=== PATIENT | female | born 1955 | race Caucasian/White ===

== ENCOUNTER → 2020-06-24 10:36 | Outpatient (CLI) | payer MEDICARE, SELFPAY ==
--- NOTE | ~2020-06-24 | MM_ITS ---
EXAMINATION: MM screening cruz BI w warren HISTORY: Screening mammogram TECHNIQUE: Craniocaudal and mediolateral oblique 3-D tomosynthesis images were obtained and synthetic 2-D images were generated. CAD analysis was submitted and interpreted. COMPARISON: 05/24/2009 BREAST PARENCHYMAL COMPOSITION: There are scattered areas of fibroglandular density. FINDINGS: There is no evidence of suspicious mass, calcification, or architectural distortion to sugg est malignancy in either breast. There has been no suspicious interval change. IMPRESSION: 1. No mammographic evidence of malignancy. 2. Recommend routine screening mammography in one year. BI-RADS Category 1: Negative Reviewed, dictated and finalized at location A. [employer] CONSTRUCTOR
== END ==
PROVIDERS: PCP Family Medicine; Visit Provider Family Medicine
DX: Z12.31 Encounter for screening mammogram for malignant neoplasm of breast (principal)
CPT/HCPCS: 77063; 77067

== ENCOUNTER 2021-05-19 07:43 | Outpatient (CLI) | payer MEDICARE, SELFPAY ==
--- NOTE | 2021-05-28 19:15 | WPDHOMESLEEP ---
Sleep Study - Home Unattended Date of Study: 05/19/21 <Naina Hart DO - Last Filed: 05/28/21 19:32> Ordering Provider: Wilberto Wakefield DO <Naina Hart DO - Last Filed: 05/28/21 19:32> Interpreting Provider: Naina Hart DO <Naina Hart DO - Last Filed: 05/28/21 19:32> Home Sleep Study Type: Watch PAT <Naina Hart DO - Last Filed: 05/28/21 19:32> Height: 1.6 m <Naina Hart DO - Last Filed: 05/28/21 19:32> Weight: 76.204 kg <Naina Hart DO - Last Filed: 05/28/21 19:32> Body Mass Index: 29.7 <Naina Hart DO - Last Filed: 05/28/21 19:32> Neck Circumference (inches): 14.50 <Naina Hart DO - Last Filed: 05/28/21 19:32> [place]: 3 <Naina Hart DO - Last Filed: 05/28/21 19:32> Reason for Sleep Study Palpitations, snoring, daytime sleepiness <Naina Hart DO - Last Filed: 05/28/21 19:32> Sleep History The patient is a 65 year old female with type 2 diabetes, GERD and hyperlipidemia night had a home sleep test ordered by her concierge due to palpitations, snoring and daytime sleepiness. The patient is currently retired. She denies awakening from sleep short of breath. She often awakens at night with heartburn, belching or cough. She occasionally snores but never loud enough that others complain. She occasionally has trouble sleeping when she has a cold. She denies waking up gasping for air throughout the night. She denies having breathing problems at night observed by others. She frequently sweats excessively at night. She rarely falls asleep during the day and never while driving. She denies sleep paralysis and cataplexy. She rarely experiences vivid dreamlike scenes upon awakening or falling. She rarely has nightmares. She frequently feels sad, depressed and anxious. She frequently notices parts of her body jerk. She denies kicking throughout the night. She denies experiencing crawling and aching feelings in her legs. She occasionally has leg pain during night. She denies grinding her teeth during sleep and awakening with jaw pain. She occasionally is bothered by pain during the day and awakened by pain throughout the night. She frequently wakes up feeling stiff in the morning with sore and achy muscles. She goes to bed between 10:00 p.m. and 11:00 p.m. on both weekdays and weekends. She falls asleep within 30 minutes to an hour. She wakes up 3 times per night to urinate. She can not fall back asleep within 5-10 minutes. She wakes up between 730 and 8:00 a.m. on weekdays and weekends. She typically gets 6-7 hours of sleep per night he will stay in bed for 10-20 minutes after waking up in morning. She currently lives with her . She does not consume any caffeinated beverages within 2 hours of going to bed. He does not engage in physical exercise before bedtime. She will watch television before falling asleep. She does not nap in the afternoon the evening. She is a former smoker. She will consume 3 caffeinated beverages per day. She denies alcohol and recreational drug use. <Naina Hart DO - Last Filed: 05/28/21 19:32> [facility] Past Medical History Medical History: Medical History Diabetes Dyslipidemia GERD without esophagitis History of vaginal delivery x 2 Normal colonoscopy Type 2 diabetes mellitus without complication, without long-term current use of insulin <Naina Hart DO - Last Filed: 05/28/21 19:32> Family History Family History: Family History Mother Hypertension Other Diabetes mellitus Family history of thyroid disease <Naina Hart DO - Last Filed: 05/28/21 19:32> Social History Social History: Social History Second
[2021-05-28 19:18] VITALS: BMI 29.7
== END 2021-05-20 09:26 | disposition home or self-care (01) ==
LOC: ANHCSM 07:48
PROVIDERS: PCP Family Medicine; Visit Provider Internal Medicine Cardiovascular Disease
DX: G47.10 Hypersomnia, unspecified (principal); G47.33 Obstructive sleep apnea (adult) (pediatric)
CPT/HCPCS: 95800

== ENCOUNTER → 2021-05-22 09:42 | Outpatient (CLI) | payer MEDICARE, SELFPAY ==
--- NOTE | ~2021-05-22 | CT_ITS ---
EXAMINATION:CT lung screening DATE: 05/22/2021 09:54 INDICATION: Tobacco use. Smoker who quit 3 years ago with 69 pack year history. TECHNIQUE: Computed tomography (CT) of the chest was performed without intravenous contrast. Automate d exposure control and iterative reconstruction technique were employed. The dose-length product (DLP ) was 106.05 mGy-cm. COMPARISON: None. FINDINGS: A calcified left lung nodule and calcified left hilar lymph nodes are consistent with old g ranulomatous disease. No pleural effusion. The heart size is normal. There are coronary artery calcif ications. No pericardial effusion. There is a small sliding hiatal hernia. There is a 16 mm mass jhon uring low attenuation in right adrenal gland, consistent with an adenoma. There is severe thoracic sp ondylosis. IMPRESSION: 1. Lung-RADS category 1: Negative. Continue annual screening with noncontrast low-dose chest CT in 12 months. Reviewed, dictated and finalized at location A. IMPRESSION: 1. Lung-RADS category 1: Negative. Continue annual screening with noncontrast l ow-dose chest CT in 12 months.
== END ==
PROVIDERS: PCP Family Medicine; Visit Provider Family Medicine
DX: Z12.2 Encounter for screening for malignant neoplasm of respiratory organs (principal); Z87.891 Personal history of nicotine dependence
CPT/HCPCS: 71271

== ENCOUNTER 2021-06-16 07:24 | Outpatient (CLI) | payer MEDICARE, SELFPAY ==
--- NOTE | 2021-06-16 07:37 | ECHO_ITS ---
Patient Info Name: Mary Jean Age: 65 years : 1955 Gender: Female Ht: 63 in Wt: 168 lbs BSA: 1.87 m2 HR: 64 bpm BP: 126 / 73 mmHg Technical Quality: Good Exam Date: 06/16/2021 7:56 AM Exam Location: [facility] Patient Status: Outpatient Admit Date: 06/16/2021 Staff Ordering Physician: Wilberto Wakefield DO Security Police: Alayna Montes De Oca RDCS Attending Provider: Wilberto Wakefiled DO Referring Physician: Ashu SANTIAGO; Exam Type: CA echo doppler color flow Study Info Indications R06.00 - Dyspnea, unspecified Complete two-dimensional, color flow and Doppler transthoracic echocardiogram is performed. Summary 1. Complete two-dimensional, color flow and Doppler transthoracic echocardiogram is performed. 2. Left ventricular chamber dimension is normal. 3. Left ventricular systolic function is normal, estimated at 55-60%. 4. There is mildly increased left ventricular wall thickness. 5. The left ventricular diastolic function is abnormal. 6. E/e' 10 is mildly elevated. 7. The mitral valve has mildly calcified annulus. 8. There is mild tricuspid valve regurgitation. 9. No pulmonary hypertension, estimated pulmonary arterial systolic pressure is 28 mmHg. Left Ventricle E/e' 10 is mildly elevated. Left ventricular chamber dimension is normal. Left ventricular systolic function is normal, estimated at 55-60%. There is mildly increased left ventricular wall thickness. The left ventricular diastolic function is abnormal. Right Ventricle Right ventricular chamber dimension is normal. Right ventricular systolic function is normal. Left Atria Left atrial chamber dimension is normal. Right Atria Right atrial chamber dimension is normal. Aortic Valve The aortic valve is trileaflet. There is no aortic valve stenosis. There is no aortic valve regurgitation. Pulmonic Valve There is no pulmonic regurgitation. Mitral Valve The mitral valve has mildly calcified annulus. There is no mitral valve stenosis. There is no mitral valve regurgitation. Tricuspid Valve There is mild tricuspid valve regurgitation. No pulmonary hypertension, estimated pulmonary arterial systolic pressure is 28 mmHg. Pericardium/Pleural There is no pericardial effusion. Inferior Vena Cava Normal inferior vena cava with >50% collapse upon inspiration consistent with normal right atrial pressure, 5 mmHg. Aorta The aortic root size at the sinus of Valsalva is normal. Left Ventricular Outflow Tract Name Value Normal LVOT 2D LVOT Diameter 2.0 cm LVOT Doppler LVOT Peak Gradient 4 mmHg LVOT Mean Gradient 3 mmHg LVOT VTI 28 cm LVOT VTI/AV VTI Ratio 0.9 LVOT Stroke Volume 83 ml LVOT CO 5.8 l/min LVOT CI 3.1 l/min/m2 Pulmonic Valve Name Value Normal
== END 2021-06-16 07:25 | disposition home or self-care (01) ==
LOC: ANHCARD 07:25
PROVIDERS: PCP Family Medicine; Visit Provider Internal Medicine Cardiovascular Disease
DX: R06.00 Dyspnea, unspecified (principal); I36.1 Nonrheumatic tricuspid (valve) insufficiency
CPT/HCPCS: 93306

== ENCOUNTER 2021-06-17 09:44 | Outpatient (CLI) | payer MEDICARE, SELFPAY ==
--- NOTE | 2021-07-08 12:36 | WPDSLEEPSTUD ---
Sleep Study Date of Study: 06/17/21 <Naina Hrat, DO - Last Filed: 07/08/21 13:39> Ordering Provider: Wilberto Wakefield DO <Naina Hart, DO - Last Filed: 07/08/21 13:39> Interpreting Physician: Naina Hart DO <Naina Hart, DO - Last Filed: 07/08/21 13:39> Sleep Study Type: CPAP Titration <Naina Hart DO - Last Filed: 07/08/21 13:39> Height: 1.61 m <Naina Hart DO - Last Filed: 07/08/21 13:39> Weight: 76.204 kg <Naina Hart DO - Last Filed: 07/08/21 13:39> Body Mass Index: 29.2 <Naina Hart DO - Last Filed: 07/08/21 13:39> Neck Circumference (inches): 14 <Naina Hart DO - Last Filed: 07/08/21 13:39> [place]: 2 <Naina Hart DO - Last Filed: 07/08/21 13:39> Reason for Sleep Study The patient had a home sleep test on 05/19/2021 that showed an AHI of 16.6 which is consistent with moderate sleep apnea. She had a NBA of 7.3 which is elevated. She had an echocardiogram on 06/16/2021 that showed an EF between 55-60%. Patient was then scheduled for a PAP Titration. <Naina Hart, DO - Last Filed: 07/08/21 13:39> Sleep History The patient is a 65 year old female with type 2 diabetes, GERD and hyperlipidemia night had a home sleep test ordered by her entertainment usher due to palpitations, snoring and daytime sleepiness. The patient is currently retired. She denies awakening from sleep short of breath. She often awakens at night with heartburn, belching or cough. She occasionally snores but never loud enough that others complain. She occasionally has trouble sleeping when she has a cold. She denies waking up gasping for air throughout the night. She denies having breathing problems at night observed by others. She frequently sweats excessively at night. She rarely falls asleep during the day and never while driving. She denies sleep paralysis and cataplexy. She rarely experiences vivid dreamlike scenes upon awakening or falling. She rarely has nightmares. She frequently feels sad, depressed and anxious. She frequently notices parts of her body jerk. She denies kicking throughout the night. She denies experiencing crawling and aching feelings in her legs. She occasionally has leg pain during night. She denies grinding her teeth during sleep and awakening with jaw pain. She occasionally is bothered by pain during the day and awakened by pain throughout the night. She frequently wakes up feeling stiff in the morning with sore and achy muscles. She goes to bed between 10:00 p.m. and 11:00 p.m. on both weekdays and weekends. She falls asleep within 30 minutes to an hour. She wakes up 3 times per night to urinate. She can not fall back asleep within 5-10 minutes. She wakes up between 730 and 8:00 a.m. on weekdays and weekends. She typically gets 6-7 hours of sleep per night he will stay in bed for 10-20 minutes after waking up in morning. She currently lives with her . She does not consume any caffeinated beverages within 2 hours of going to bed. He does not engage in physical exercise before bedtime. She will watch television before falling asleep. She does not nap in the afternoon the evening. She is a former smoker. She will consume 3 caffeinated beverages per day. She denies alcohol and recreational drug use. <Naina Hart DO - Last Filed: 07/08/21 13:39> [facility] Past Medical History Medical History: Medical History Diabetes Dyslipidemia GERD without esophagitis History of vaginal delivery x 2 Normal colonoscopy Type 2 diabetes mellitus without complication, without long-term current use of insulin <Naina Hart DO - Last Filed: 07/08/21 13:39> Family History Family History: Family History Mother Hypertension Other Diabetes ángel
[2021-07-08 12:38] VITALS: BMI 29.2
== END 2021-06-18 07:58 | disposition home or self-care (01) ==
LOC: ANHCSM 09:44
PROVIDERS: PCP Family Medicine; Visit Provider Internal Medicine Cardiovascular Disease
DX: G47.33 Obstructive sleep apnea (adult) (pediatric) (principal)
CPT/HCPCS: 95811

== ENCOUNTER → 2021-11-23 12:13 | Outpatient (CLI) | payer MEDICARE, SELFPAY ==
--- NOTE | ~2021-11-23 | DEXA_ITS ---
Bone Density Report Name: SHELBI QUIROGA Age: 66 Sex: Female Ethnicity: White Date of : 1955 Indication: postmenopausal; screening for osteoporosis; height loss; Referring Provider: Christine Del Rio Study: Bone densitometry was performed. Exam Date: November 23, 2021 Accession number: [id number] Bone Density: Region BMD T-score Z-score Classification AP Spine (L1-L4) 1.105 0.5 2.5 Normal Femoral Neck (Left) 0.885 0.3 2.0 Normal Total Hip (Left) 1.032 0.7 2.1 Normal Femoral Neck (Right) 0.823 -0.2 1.5 Normal Total Hip (Right) 1.066 1.0 2.4 Normal Total Hip Mean 1.049 0.9 2.3 Normal World Health Organization criteria for BMD impression classify patients as: Normal (T-score at or above -1.0), Osteopenia (T-score between -1.0 and -2.5), or Osteoporosis (T-score at or below -2.5). 10-year Fracture Risk: FRAX not reported because: All T-scores for Spine Total, Hip Total, Femoral Neck at or above -1.0 Previous Exams: Region Exam Age BMD T-score BMD Change BMD Change Date g/cm2 vs Baseline vs Previous AP Spine(L1-L4) 11/23/2021 66 1.105 0.5 0.051* 0.045* 05/24/2012 56 1.059 0.1 0.006 0.006 05/24/2009 53 1.053 0.1 Total Hip(Left) 11/23/2021 66 1.032 0.7 0.005 -0.030* 05/24/2012 56 1.062 1.0 0.035* 0.035* 05/24/2009 53 1.027 0.7 Total Hip(Right) 11/23/2021 66 1.066 1.0 -0.005 -0.007 05/24/2012 56 1.073 1.1 0.001 0.001 05/24/2009 53 1.072 1.1 *Denotes significance at 95% confidence level, LSC for AP Spine = 0.022 g/cm2, LSC for Total Hip = 0.027 g/cm2 Clinical Information Provided by Patient: Patient maximum height was 64.5 Menopause Age: 40 No regular weight bearing exercise Does not regularly consume dairy products Drinks caffeinated beverages Onset of menses at age 12 Number of children 2 Impression: The patient has normal bone mass. The BMD for the Total Hip(Left) decreased, changing by -0.030 since the last DXA exam. Discussion: BONE DENSITY IS ABOVE THE MINIMUM DESIRABLE LEVEL AT ALL SKELETAL SITES TESTED. This patient?s bone mineral density is above the minimum desirable level (T-score -1.0 or better) at all sites measured. The patient should follow a healthful lifestyle (good nutrition with adequate calcium and vitamin D, and appropriate weight-bearing exercise).
--- NOTE | ~2021-11-23 | MM_ITS ---
EXAMINATION: MM screening cruz BI w warren HISTORY: Screening mammogram TECHNIQUE: Craniocaudal and mediolateral oblique 3-D tomosynthesis images were obtained and synthetic 2-D images were generated. CAD analysis was submitted and interpreted. COMPARISON: 06/24/2020 bilateral screening mammogram BREAST PARENCHYMAL COMPOSITION: There are scattered areas of fibroglandular density. FINDINGS: There is a biopsy marker on the right; history of prior benign right breast biopsy. Small stable benign appearing right axillary tail lymph nodes. Several up to approximately 4 mm nodular densities are noted in the lower mid right breast. Diagnosti c right mammogram and right breast ultrasound examination are recommended. Otherwise there is no evidence of suspicious mass, calcification, or architectural distortion to sugg est malignancy in either breast. There has been no other suspicious interval change. IMPRESSION: 1. Several lower mid right breast masses 2. Diagnostic right mammogram and right breast ultrasound examination are recommended. BI-RADS Category 0: Incomplete: Needs additional imaging evaluation. Reviewed, dictated and finalized at location A. IMPRESSION: 1. Several lower mid right breast masses 2. Diagnostic right mammogram and right breast ultrasound examination are recom mended. BI-RADS Category 0: Incomplete: Needs additional imaging evaluation.
== END ==
PROVIDERS: PCP Family Medicine; Visit Provider Family Medicine
DX: Z12.31 Encounter for screening mammogram for malignant neoplasm of breast (principal); Z78.0 Asymptomatic menopausal state; R92.8 Other abnormal and inconclusive findings on diagnostic imaging of breast
CPT/HCPCS: 77063; 77067; 77080

== ENCOUNTER → 2021-11-26 12:40 | Outpatient (CLI) | payer MEDICARE, SELFPAY ==
--- NOTE | ~2021-11-26 | CT_ITS ---
EXAMINATION: CT abdomen w con INDICATION: Benign neoplasm of the right adrenal gland TECHNIQUE: Computed tomographic images of the abdomen were obtained after the administration of 100 c c of Omnipaque 350 intravenous contrast. The dose-length product (DLP) was 441.58 mGy-cm. Automated e xposure control and iterative reconstruction technique were employed. COMPARISON: 05/22/2021 FINDINGS: Minimal dependent atelectasis is present in the lung bases. The heart size is normal. The l iver, spleen, pancreas, and gallbladder are normal. There is a stable 1.6 cm mass of the right adrena l gland. Calcified atherosclerosis is noted. There are no pathologically enlarged abdominal lymph nod es. The appendix is normal. There is no free intraperitoneal gas or evidence of bowel obstruction. IMPRESSION: 1. Stable right adrenal mass, consistent with an adenoma given the low density appearance on the [facility] CT. Reviewed, dictated and finalized at location F. IMPRESSION: 1. Stable right adrenal mass, consistent with an adenoma given the low density appearance on the comparison CT.
[2021-11-26 13:00] LABS: Estimated Glomerular Filt Rate > 60
== END ==
PROVIDERS: PCP Family Medicine; Visit Provider Family Medicine
DX: D35.01 Benign neoplasm of right adrenal gland (principal)
CPT/HCPCS: 74160; Q9967

== ENCOUNTER → 2021-12-01 14:06 | Outpatient (CLI) | payer MEDICARE, SELFPAY ==
--- NOTE | ~2021-12-01 | MMUS_ITS ---
EXAMINATION: MM diagnostic cruz RT w warren, US breast RT limited HISTORY: Follow-up small right breast masses TECHNIQUE: Additional 3-D tomosynthesis images of the right breast were performed and synthetic 2-D i mages were generated. CAD analysis was submitted and interpreted. High resolution Limited right breas t ultrasound was performed. COMPARISON: 11/23/2021 BREAST PARENCHYMAL COMPOSITION: Breast composed of scattered areas of fibroglandular density FINDINGS: MAMMOGRAPHIC FINDINGS: There are 2 small masses in the lower central aspect of the right breast, largest measuring 4 mm. No suspicious calcifications or architectural distortion. ULTRASOUND: Limited right breast ultrasound: At 6:00 near the [place] there is a 4 mm cyst corresponding to one of the masses. No other sonographic abnormalities are seen. IMPRESSION: 1. Probable benign right breast masses by mammogram with at least one being characterized as a simple cyst by ultrasound. 2. Recommend 6 month follow-up diagnostic right mammogram and ultrasound BI-RADS category 3, probably benign findings. Reviewed, dictated and finalized at location A. IMPRESSION: 1. Probable benign right breast masses by mammogram with at least one being antwan racterized as a simple cyst by ultrasound. 2. Recommend 6 month follow-up diagnostic right mammogram and ultrasound BI-RADS category 3, probably benign findings.
== END ==
PROVIDERS: PCP Family Medicine; Visit Provider Family Medicine
DX: R92.8 Other abnormal and inconclusive findings on diagnostic imaging of breast (principal)
CPT/HCPCS: 76642; 77061; 77065; G0279

== ENCOUNTER 2022-11-11 10:37 | Outpatient (CLI) | payer MEDICARE, SELFPAY ==
[2022-11-11 18:56] LABS: Alanine Aminotransferase 43 U/L (6-35); Albumin Level 4.3 g/dL (3.5-5.1); Alkaline Phosphatase 79 U/L (38-126); Anion Gap 6 mmol/L (8-16); Aspartate Amino Transferase 48 U/L (14-36); Bilirubin,Total 0.7 mg/dL (0.2-1.3); Blood Urea Nitrogen 13 mg/dL (7-17); Calcium 9.1 mg/dL (8.4-10.2); Carbon Dioxide 32 mmol/L (22-30); Chloride 102 mmol/L (98-107); Estimated Glomerular Filt Rate > 60; Glucose 136 mg/dL (65-110); Potassium 4.6 mmol/L (3.4-5.0); Sodium 140 mmol/L (137-145)
[2022-11-11 20:54] LABS: Hemoglobin A1C 7.1 % (<5.7)
== END 2022-11-11 10:38 | disposition home or self-care (01) ==
LOC: ANHGOSHLAB 10:38
PROVIDERS: PCP Family Medicine; Visit Provider Family Medicine
DX: E78.5 Hyperlipidemia, unspecified (principal); Z79.899 Other long term (current) drug therapy; E11.9 Type 2 diabetes mellitus without complications
CPT/HCPCS: 36415; 80053; 83036

== ENCOUNTER → 2023-05-13 10:14 | Outpatient (CLI) | payer MEDICARE, SELFPAY ==
--- NOTE | ~2023-05-13 | CT_ITS ---
CT Scan of the Chest without Contrast: Clinical Indication: Lung cancer screening, personal history of nicotine dependence Technique: Contiguous sections were acquired throughout the chest without intravenous contrast. Dose reduction technique was used on this scan by utilizing automated exposure control and iterative recon struction technique. The dose-length product (DLP) was 126.24 mGy-cm. COMPARISON: 05/22/2021 Findings: There is no evidence of any significant mediastinal, hilar or axillary lymphadenopathy. There are ext ensive atherosclerotic calcifications of the aorta and coronary arteries. There is no evidence of pleural or pericardial effusion. The lungs are clear. No pulmonary nodules or infiltrates are noted. Images through the upper abdomen reveal stable right adrenal nodule, consistent with adenoma. Impression: Lung RADS 1: Negative. 12 month follow-up screening CT advised. Reviewed, dictated and finalized at [facility]. Impression: Lung RADS 1: Negative. 12 month follow-up screening CT advised.
== END ==
PROVIDERS: PCP Family Medicine; Visit Provider Nurse Practitioner Family
DX: Z12.2 Encounter for screening for malignant neoplasm of respiratory organs (principal); Z87.891 Personal history of nicotine dependence
CPT/HCPCS: 71271

== ENCOUNTER → 2023-06-16 09:23 | Outpatient (CLI) | payer MEDICARE, SELFPAY ==
--- NOTE | ~2023-06-16 | MMUS_ITS ---
EXAMINATION: MM diagnostic cruz BI w warren, US breast LT limited HISTORY: Palpable left breast abnormality TECHNIQUE: Additional 3-D tomosynthesis images of the breasts were performed and synthetic 2-D images were generated. CAD analysis was submitted and interpreted. High resolution Limited left breast ultr asound was performed. COMPARISON: Comparison to multiple prior studies sequentially, with oldest reviewed study dated 06/08. BREAST PARENCHYMAL COMPOSITION: Breast composed of scattered areas of fibroglandular density FINDINGS: MAMMOGRAPHIC FINDINGS: There is a small stable mass in the lower central aspect of the left breast without significant webb e from prior studies. The left breast is stable without evidence for malignancy. ULTRASOUND: Limited left breast ultrasound: Normal heterogeneous echotexture without focal solid or cystic mass. IMPRESSION: 1. No evidence for malignancy in either breast. 2. Routine yearly screening mammogram and regular clinical breast examination are recommended. BI-RADS Category 2: Benign finding(s). Reviewed, dictated and finalized at location A. ULAR CLERK IMPRESSION: 1. No evidence for malignancy in either breast. 2. Routine yearly screening mammogram and regular clinical breast examination a re recommended. BI-RADS Category 2: Benign finding(s).
== END ==
PROVIDERS: PCP Family Medicine; Visit Provider Family Medicine
DX: Z12.31 Encounter for screening mammogram for malignant neoplasm of breast (principal); R92.8 Other abnormal and inconclusive findings on diagnostic imaging of breast
CPT/HCPCS: 76642; 77062; 77066; G0279

== ENCOUNTER 2023-11-16 13:32 | Outpatient (CLI) | payer MEDICARE, SELFPAY ==
[2023-11-16 18:59] LABS: Alanine Aminotransferase 28 U/L (6-35); Albumin Level 4.6 g/dL (3.5-5.1); Alkaline Phosphatase 78 U/L (38-126); Anion Gap 7 mmol/L (4-12); Aspartate Amino Transferase 43 U/L (14-36); Bilirubin,Total 0.9 mg/dL (0.2-1.3); Blood Urea Nitrogen 9 mg/dL (7-17); Carbon Dioxide 27 mmol/L (22-30); Chloride 105 mmol/L (98-107); Estimated Glomerular Filt Rate > 60; Glucose 104 mg/dL (65-110); Sodium 139 mmol/L (137-145)
[2023-11-16 19:28] LABS: Hemoglobin A1C 5.6 % (<5.7)
== END 2023-11-16 13:33 | disposition home or self-care (01) ==
LOC: ANHGOSHLAB 13:33
PROVIDERS: PCP Family Medicine; Visit Provider Family Medicine
DX: E78.5 Hyperlipidemia, unspecified (principal); E11.9 Type 2 diabetes mellitus without complications
CPT/HCPCS: 36415; 80053; 83036

== ENCOUNTER 2024-02-17 00:38 | Day surgery (SDC) | payer MEDICARE, SELFPAY ==
[2024-02-03 15:09] VITALS: BMI 25.3
[2024-02-17 09:05] VITALS: BP 136/60; PULSE 95; RESP 16; TEMP 36.1; O2SAT 100
--- NOTE | 2024-02-17 09:10 | PM.HPGS ---
History of Present Illness History of Present Illness Consent: Risks, benefits, and alternatives have been discussed and questions answered. Patient agrees to proceed with procedure. Chief complaint: Personal history colon polyps Narrative: Mary Jean is a 68 year old female with colon polyp 5 years ago Review of Systems Review of Systems: All systems reviewed & are unremarkable except as noted in HPI and below PMFSH Past Medical History Medical History (Updated 02/17/24 @ 09:10 by Jeremiah Faulkner MD) Abnormal mammogram of right breast Adenoma of right adrenal gland Arthritis of carpometacarpal (CMC) joint of left thumb Chronic pain of both knees Colon polyp Diabetic neuropathy Dyslipidemia Former smoker GERD without esophagitis Heart murmur Left knee DJD Obesity MARGARET (obstructive sleep apnea) Overweight (BMI 25.0-29.9) Right knee DJD Trigger finger of right hand Type 2 diabetes mellitus without complication, without long-term current use of insulin Surgical History Surgical History History of D&C (~07/2010) D and C and Resection of endometrial polyps History of tonsillectomy History of vaginal delivery x 2 Hx of cataract surgery Family History Family History Mother Hypertension Other Arthritis Diabetes mellitus Family history of thyroid disease Social History Social History Smoking packs per day: 1.5 Smoking cigarettes per day: 30.0 Years smoked: 50 Smoking pack-years: 75.00 Smoking status: Former smoker Tobacco type: cigarettes Second hand tobacco smoke exposure: No Smoking end date: 08/09/17 Alcohol intake: current Drinks per week: 7 Alcohol use details: ONE GLASS WINE DAILY Substance use: never Substance use type: does not use Do You Feel Safe in your Home?: Yes Lack of Transportation: No Lack of Food: Never True Current Housing: I Have Housing Concerned About Future Housing: No Difficulty Paying Gas/Electric Bills: No Difficulty Paying for Meds: No Currently Unemployed: No Education: High School Diploma/GED Difficulty w/ Childcare or Family Care: No Living arrangements: with family Additional living arrangements comments: Occupation/Education: retired Gender identity (if verbalized by the patient): Female Sexual Orientation (if Verbalized by the Patient): Straight or Heterosexual Spiritual care concerns: No Meds Home Medications and Allergies Home Medications Medication Instructions Recorded Confirmed Type blood-glucose meter (Blood Glucose #1 ea 04/06/21 02/17/24 Rx Monitoring kit) lancets #100 ea 10/19/21 02/17/24 Rx blood-glucose sensor (FreeStyle #6 ea 05/23/23 02/17/24 Rx Pari 3 Sensor device) famotidine 20 mg tablet (Pepcid) 20 mg PO DAILY PRN Acid Reflux 05/23/23 02/17/24 History lancets 33 gauge (OneTouch Delica #100 ea 06/07/23 02/17/24 Rx Plus Lancet) metformin 500 mg tablet,extended 1,500 mg PO DAILY #360 tabs 09/09/23 02/17/24 Rx release 24 hr blood sugar diagnostic (Blood #100 ea 11/08/23 02/17/24 Rx Glucose Test strips) atorvastatin 10 mg tablet 10 mg PO QHS #90 tabs 12/02/23 02/17/24 Rx semaglutide 2 mg/dose (8 mg/3 mL) 2 mg (0.75 mL) subcut WEEKLY #3 mL 01/16/24 02/17/24 Rx subcutaneous pen injector (Ozempic) sertraline 50 mg tablet (Zoloft) 50 mg PO DAILY #90 tabs 01/23/24 02/17/24 Rx Allergies Allergy/AdvReac Type Severity Reaction Status Date / Time naproxen Allergy Severe RESP. Verified 02/17/24 09:03 DIFFICULTY ranitidine Allergy Intermediate Itching Verified 02/17/24 09:03 Penicillins Allergy Unknown UNKNOWN, Verified 02/17/24 09:03 WAS A CHILD Vital Signs Vital Signs - 24 hr 02/17/24 09:05 Temperature 97.0 F L Pulse Rate 95 Respiratory Rate 16 Blood Pressure 136/60 Pulse
[2024-02-17 09:13] LABS: Glucose Point of Care 84 mg/dl (65-105)
[2024-02-17] MEDS: LACTATED RINGERS 1,000 ML 150 ML IV CONT (09:13)
--- NOTE | 2024-02-17 09:18 | WPDANESEPPF ---
Anes - Initial Pre Proc Eval Procedure: Operation Date: 02/17/24 10:30 Proposed Procedures p Colonoscopy - Jeremiah Faulkner MD Date/Time: 02/17/24 09:18 Surgeon: Jeremiah Faulkner MD Pre Op Diagnosis: Personal history colon polyps Patient Data Age: 68 Gender: F Height: 1.63 m Weight: 65.4 kg Last Vital Signs Temp 97.0 F L 02/17/24 09:05 Pulse 95 02/17/24 09:05 Resp 16 02/17/24 09:05 BP 136/60 02/17/24 09:05 Pulse Ox 100 02/17/24 09:05 O2 Del Method Room Air 02/17/24 09:05 Allergies Allergy/AdvReac Type Severity Reaction Status Date / Time naproxen Allergy Severe RESP. Verified 02/17/24 09:03 DIFFICULTY ranitidine Allergy Intermediate Itching Verified 02/17/24 09:03 Penicillins Allergy Unknown UNKNOWN, Verified 02/17/24 09:03 WAS A CHILD Home Medications Medication Instructions Recorded Confirmed Type blood-glucose meter (Blood Glucose #1 ea 04/06/21 02/17/24 Rx Monitoring kit) lancets #100 ea 10/19/21 02/17/24 Rx blood-glucose sensor (FreeStyle #6 ea 05/23/23 02/17/24 Rx Pari 3 Sensor device) famotidine 20 mg tablet (Pepcid) 20 mg PO DAILY PRN Acid Reflux 05/23/23 02/17/24 History lancets 33 gauge (OneTouch Delica #100 ea 06/07/23 02/17/24 Rx Plus Lancet) metformin 500 mg tablet,extended 1,500 mg PO DAILY #360 tabs 09/09/23 02/17/24 Rx release 24 hr blood sugar diagnostic (Blood #100 ea 11/08/23 02/17/24 Rx Glucose Test strips) atorvastatin 10 mg tablet 10 mg PO QHS #90 tabs 12/02/23 02/17/24 Rx semaglutide 2 mg/dose (8 mg/3 mL) 2 mg (0.75 mL) subcut WEEKLY #3 mL 01/16/24 02/17/24 Rx subcutaneous pen injector (Ozempic) sertraline 50 mg tablet (Zoloft) 50 mg PO DAILY #90 tabs 01/23/24 02/17/24 Rx Laboratory Tests 02/17/24 09:10 POC Capillary Glucose 84 mg/dl (65-105) Patient hx anesthesia problems: none Family hx anesthesia problems: none Results Review: All pre-operative results and documents have been reviewed as part of the pre-operative evaluation. [facility] Past Medical History Medical History (Updated 02/17/24 @ 09:10 by Jeremiah Faulkner MD) Abnormal mammogram of right breast Adenoma of right adrenal gland Arthritis of carpometacarpal (CMC) joint of left thumb Chronic pain of both knees Colon polyp Diabetic neuropathy Dyslipidemia Former smoker GERD without esophagitis Heart murmur Left knee DJD Obesity MARGARET (obstructive sleep apnea) Overweight (BMI 25.0-29.9) Right knee DJD Trigger finger of right hand Type 2 diabetes mellitus without complication, without long-term current use of insulin Surgical History Surgical History History of D&C (~07/2010) D and C and Resection of endometrial polyps History of tonsillectomy History of vaginal delivery x 2 Hx of cataract surgery Family History Family History Mother Hypertension Other Arthritis Diabetes mellitus Family history of thyroid disease Social History Social History Smoking packs per day: 1.5 Smoking cigarettes per day: 30.0 Years smoked: 50 Smoking pack-years: 75.00 Smoking status: Former smoker Tobacco type: cigarettes Second hand tobacco smoke exposure: No Smoking end date: 08/09/17 Alcohol intake: current Drinks per week: 7 Alcohol use details: ONE GLASS WINE DAILY Substance use: never Substance use type: does not use Do You Feel Safe in your Home?: Yes Lack of Transportation: No Lack of Food: Never True Current Housing: I Have Housing Concerned About Future Housing: No Difficulty Paying Gas/Electric Bills: No Difficulty Paying for Meds: No Currently Unemployed: No Education: High School Diploma/GED Difficulty w/ Childcare or Family Care: No Living arrangements: with family Additional living arrangement
[2024-02-17 09:31] VITALS: BP 116/52; PULSE 90; RESP 25; O2SAT 97
[2024-02-17 09:41] VITALS: BP 112/56; PULSE 91; RESP 25; O2SAT 100
[2024-02-17 09:51] VITALS: BP 126/65; PULSE 89; RESP 28; O2SAT 99
== END 2024-02-17 10:02 | disposition home or self-care (01) ==
PROVIDERS: PCP Family Medicine; Visit Provider Internal Medicine Gastroenterology
PROC: 0DJD8ZZ Inspection of Lower Intestinal Tract, Via Natural or Artificial Opening Endoscopic (ICD-10-PCS; CPT 45378; principal; 2024-02-17 10:30)
DX: Z12.11 Encounter for screening for malignant neoplasm of colon (principal); D12.2 Benign neoplasm of ascending colon; K64.8 Other hemorrhoids; K64.4 Residual hemorrhoidal skin tags; K57.30 Diverticulosis of large intestine without perforation or abscess without bleeding; E11.40 Type 2 diabetes mellitus with diabetic neuropathy, unspecified; E78.5 Hyperlipidemia, unspecified; K21.9 Gastro-esophageal reflux disease without esophagitis; G47.33 Obstructive sleep apnea (adult) (pediatric); R01.1 Cardiac murmur, unspecified; M25.562 Pain in left knee; M25.561 Pain in right knee; G89.29 Other chronic pain; M17.0 Bilateral primary osteoarthritis of knee; Z79.84 Long term (current) use of oral hypoglycemic drugs; Z79.85 Long-term (current) use of injectable non-insulin antidiabetic drugs; Z98.890 Other specified postprocedural states; Z87.891 Personal history of nicotine dependence; Z86.018 Personal history of other benign neoplasm
CPT/HCPCS: 45385; 82948; 88305; J2704; J7120

== ENCOUNTER 2024-05-25 12:38 | Outpatient (CLI) | payer MEDICARE, SELFPAY ==
[2024-05-25 18:38] LABS: Creatinine Urine 70.1 mg/dL
[2024-05-25 18:50] LABS: MALB Creatinine Ratio < 8.6 mg/g (0-30); Microalbumin Urine Random < 6.0 mg/L (0-16.7)
== END 2024-05-25 12:39 | disposition home or self-care (01) ==
LOC: ANHGOSHLAB 12:39
PROVIDERS: PCP Family Medicine; Visit Provider Nurse Practitioner
DX: E11.9 Type 2 diabetes mellitus without complications (principal)
CPT/HCPCS: 82043

== ENCOUNTER 2024-05-29 10:14 | Outpatient (CLI) | payer MEDICARE, SELFPAY ==
[2024-05-29 13:17] LABS: Alanine Aminotransferase 47 U/L (6-35); Albumin Level 4.2 g/dL (3.5-5.1); Alkaline Phosphatase 91 U/L (38-126); Anion Gap 6 mmol/L (4-12); Aspartate Amino Transferase 51 U/L (14-36); Bilirubin,Total 0.6 mg/dL (0.2-1.3); Blood Urea Nitrogen 15 mg/dL (7-17); Calcium 9.6 mg/dL (8.4-10.2); Carbon Dioxide 31 mmol/L (22-30); Chloride 102 mmol/L (98-107); Cholesterol 166 mg/dL (0-200); Estimated Glomerular Filt Rate > 60; Glucose 93 mg/dL (65-110); HDL Direct 49 mg/dL; Potassium 5.1 mmol/L (3.4-5.0); Sodium 139 mmol/L (137-145); Triglycerides 154 mg/dL (<150)
[2024-05-29 13:28] LABS: LDL Cholesterol Direct 75 mg/dL
[2024-05-29 13:29] LABS: Basophils Percent Auto 0.7 % (0.2-1.2); Eosinophils Absolute Auto 0.1 K/mm3 (0-0.3); Eosinophils Percent Auto 2.5 % (0-4.4); Hematocrit 46.5 % (37.0-47.0); Hemoglobin 14.4 g/dL (12.0-15.0); Immature Granulocyte Absolute 0.01 K/mm3 (0.00-0.031); Immature Granulocyte Percent A 0.2 % (0-0.5); Lymphocytes Percent Auto 35.1 % (18.3-44.2); Mean Corpuscular Hemoglobin 29.6 pg (26-34); Mean Corpuscular Volume 95.5 fl (80-100); Mean Platelet Volume 10.4 fl (7.4-10.4); Monocytes Absolute Auto 0.5 K/mm3 (0.1-0.6); Monocytes Percent Auto 9.3 % (2.6-8.5); Neutrophils Percent Auto 52.2 % (45.5-73.1); Platelet Count Result 202 k/mm3 (150-375); Red Blood Count 4.87 M/mm3 (4.2-5.4); White Blood Count 5.7 K/mm3 (4.5-10.0)
[2024-05-29 14:45] LABS: Vitamin D 25 Hydroxy 40.1 ng/mL
[2024-05-29 14:47] LABS: Hemoglobin A1C 5.6 % (<5.7)
== END 2024-05-29 10:15 | disposition home or self-care (01) ==
LOC: ANHGOSHLAB 10:15
PROVIDERS: PCP Family Medicine; Visit Provider Family Medicine
DX: I10 Essential (primary) hypertension (principal); E53.8 Deficiency of other specified B group vitamins; E66.9 Obesity, unspecified; Z68.30 Body mass index [BMI] 30.0-30.9, adult; E11.9 Type 2 diabetes mellitus without complications; E55.9 Vitamin D deficiency, unspecified; E78.5 Hyperlipidemia, unspecified
CPT/HCPCS: 36415; 80053; 80061; 82306; 82607; 83036; 84443; 85025

== ENCOUNTER 2024-10-03 13:42 | Outpatient (CLI) | payer MEDICARE, SELFPAY ==
--- NOTE | ~2024-10-03 | CT_ITS ---
EXAMINATION: CT lung screening DATE: 10/03/2024 13:54 INDICATION: Z87.891 - Personal history of nicotine dependence TECHNIQUE: Computed tomography (CT) of the chest was performed without intravenous contrast. Addition al 3D reconstructions utilizing coronal maximum intensity projection (MIP) were performed. Automated exposure control and iterative reconstruction technique were employed. The dose-length product was 75 .80 mGy-cm. COMPARISON: 05/13/2023 FINDINGS: Unchanged cluster of a few <4 mm calcified and noncalcified pulmonary nodules with tree-in-bud patter n in the lingula. No pneumonia, pulmonary edema or pleural effusion. Heart size is normal. Atheroscle rotic coronary artery calcific location and aortic valve calcific lesion. Thoracic aorta is normal in caliber. Calcified left hilar lymph nodes consistent with old granulomatous disease. Visualized uppe r abdomen is unremarkable. No pathologically enlarged thoracic lymphadenopathy. Moderate thoracic spo ndylosis with minimal anterior wedging of a few mid and lower thoracic vertebral bodies. IMPRESSION: 1. . Lung-RADS category 2: Benign appearance or behavior. Continue annual screening with noncontrast low-dose chest CT in 12 months. Reviewed, dictated and finalized at location B. APPLIANCE TECH IMPRESSION: 1. . Lung-RADS category 2: Benign appearance or behavior. Continue annual scree ej with noncontrast low-dose chest CT in 12 months.
== END 2024-10-03 13:43 | disposition home or self-care (01) ==
LOC: MICIMG 13:43
PROVIDERS: PCP Family Medicine; Visit Provider Nurse Practitioner Family
DX: Z12.2 Encounter for screening for malignant neoplasm of respiratory organs (principal); Z87.891 Personal history of nicotine dependence
CPT/HCPCS: 71271

== ENCOUNTER 2024-12-04 10:25 | Outpatient (CLI) | payer MEDICARE, SELFPAY ==
--- OUTSIDE RECORDS SUMMARY | 2024-12-04 11:36 | XMS_ITS | Clinical Summary ---
Author Organization [facility] Address [address] [place] [address] Phone Care Team Providers Care Business Continuity Planning Director Name Role Phone Harvey Meza MD Primary Care Provider [phone] Allergies Active Allergy Reactions Criticality Noted Date Comments Naproxen Anaphylaxis High 06/16/2009 Penicillins Unknown 06/16/2009 Medications metFORMIN (GLUCOPHAGE) 500 mg tablet Take 500 mg by mouth daily. Two pills at night . Active Active Problems Patient Care Coordination No te Formatting of this note migh t be different from the original. Primary Care: Harvey Meza MD Referring Provider: Pam Galindo MD [address] [facility] [address] [place] [address] Other: Dr Catie Cardoza Problem Noted Date Diagnosed Date Abnormal mammogram, unspecified 12/15/2009 Family History Medical History Relation Name Comments Heart Disease Father Prostate Cancer Father Relation Name Status Comments Father Social History Tobacco Use Types Packs/Day Years Used Date Smoking Tobacco: Former Cigarettes 0 09/08/1981 - 09/08/2013 Smokeless Tobacco: Never Tobacco Cessation:Counseling Given: No Alcohol Use Standard Drinks/Week Comments Yes 0 (1 standard drink = 0.6 oz pur e alcohol) rarely Comments No Sex and Gender Information Value Date Recorded Sex Assigned at Not on file 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 Gender Identity Not on file Sexual Orientation Not on file Occupation Industry Job Start Date Job End Date Not on file Not on file Not on file Not on file Last Filed Vital Signs Vital Sign Reading Time Taken Comments Blood Pressure 114/71 05/24/2014 1:21 PM CDT Pulse 78 05/24/2014 1:21 PM CDT Temperature - - Respiratory Rate - - Oxygen Saturation - - Inhaled Oxygen Concentration - - Weight 72.1 kg (159 lb) 05/24/2014 1:21 PM CDT Height 161.3 cm (5' 3.5 ) 05/24/2014 1:21 PM CDT Body Mass Index 27.72 05/24/2014 1:21 PM CDT Plan of Treatment Health Maintenance Due Date Last Done Comments DTAP/TDAP/TD VACCINES (1 - Tdap) 1972 COLORECTAL SCREENING 1998 Colorectal Cancer Screening 1998 FIT-DNA Q 3 years 1998 FIT/FOBT Q 1 year 1998 Flex Sig/CT Colonography Q 5 years 1998 PNEUMOCOCCAL VACCINE 50+ YEA RS (1 of 1 - PCV) 2003 ZOSTER VACCINE (1 of 2) 2003 BREAST CANCER SCREENING 05/24/2015 05/24/20 14, 05/21/2014, 05/15/2014, Additional history exists OSTEOPOROSIS SCREENING 2018 INFLUENZA VACCINE (#1) 2024 RSV VACCINE (60+ or ) (1 - 1-dose 75+ series) 2028 Procedures Procedure Name Priority Date/Time Associated Diagnosis Comments MAMMO DIAGNOSTIC UNI RIGHT W OR WO CAD Routine 05/24/2014 3:40 PM CDT Abnormal mammogram, unspecified from Last 3 Months or Most Recently Relevant to Health Maintenance Results * MAMMO DIGITAL DIAG UNI RIGHT (05/24/2014 3:40 PM CDT) Anatomical Region Laterality Modality Breast Right Mammography 05/24/2014 3:02 PM CDT Impressions 05/27/2014 7:50 AM CDT IMPRESSION: Technically successful stereotactic core biopsy with tissue marker placement. Dictated from [facility] [place] Narrative 05/27/2014 7:50 AM CDT VACUUM ASSISTED CORE BIOPSY OF THE RIGHT BREAST UTILIZING STEREOTACTIC GUIDANCE AND SPECIMEN RADIOGRAPH 05/24/14 HISTORY: Grouped microcalcifications identified within the upper-central right breast on outside imaging performed at [facility]. Stereotactic biopsy is requested for tissue diagnosis. PROCEDURE AND FINDINGS: The risks and potential benefits of the procedure were discussed with the patient and written informed consent was obtained. The patient was placed in the prone position on the stereotactic table with the breast in craniocaudal compression and the area of interest was localized and targeted utilizing digital imaging with stereotaxis. After sterile preparation of the skin, 1% lidocaine was utilized for local anesthesia at the skin puncture site and 2% lidocaine with epinephrine was utilized for deeper local anesthesia/hemostasis about the biopsy site. The vacuum assisted biopsy needle was advanced to the level of the calcifications of interest from a superior approach utilizing stereotactic guidance and a total of 7 tissue cores were obtained. The specimen radiograph demonstrated that the calcifications of interest are included in the tissue cores. The needle was removed and hemostasis was achieved. A metallic clip was deployed into the biopsy cavity. Dermabond and steristrips were applied to the area for closure. An ice pack was applied to the site. A two view confirmatory full-field digital mammogram was obtained after the procedure and demonstrated adequate placement of the clip. The patient tolerated the procedure well and there is no evidence of significant immediate complication. The patient was given verbal as well as written postprocedural instructions prior to release from the department. The tissue cores were submitted to surgical pathology in formalin for histologic analysis. Procedure Note Praful Winter MD - 05/27/2014 VACUUM ASSISTED CORE BIOPSY OF THE RIGHT BREAST UTILIZING STEREOTACTIC GUIDANCE AND SPECIMEN RADIOGRAPH 05/24/14 HISTORY: Grouped microcalcifications identified within the upper-central right breast on outside imaging performed at [facility]. Stereotactic biopsy is requested for tissue diagnosis. PROCEDURE AND FINDINGS: The risks and potential benefits of the procedure were discussed with the patient and written informed consent was obtained. The patient was placed in the prone position on the stereotactic table with the breast in craniocaudal compression and the area of interest was localized and targeted utilizing digital imaging with stereotaxis. After sterile preparation of the skin, 1% lidocaine was utilized for local anesthesia at the skin puncture site and 2% lidocaine with epinephrine was utilized for deeper local anesthesia/hemostasis about the biopsy site. The vacuum assisted biopsy needle was advanced to the level of the calcifications of interest from a superior approach utilizing stereotactic guidance and a total of 7 tissue cores were obtained. The specimen radiograph demonstrated that the calcifications of interest are included in the tissue cores. The needle was removed and hemostasis was achieved. A metallic clip was deployed into the biopsy cavity. Dermabond and steristrips were applied to the area for closure. An ice pack was applied to the site. A two view confirmatory full-field digital mammogram was obtained after the procedure and demonstrated adequate placement of the clip. The patient tolerated the procedure well and there is no evidence of significant immediate complication. The patient was given verbal as well as written postprocedural instructions prior to release from the department. The tissue cores were submitted to surgical pathology in formalin for histologic analysis. IMPRESSION IMPRESSION: Technically successful stereotactic core biopsy with tissue marker placement. Dictated from [facility] [place] Catie Cardoza MD MAMMO ORDERABLES Final Resul t from Last 3 Months or Most Recently Relevant to Health Maintenance Insurance Care Teams Business Continuity Planning Director Relationship Specialty Start Date End Date Harvey Meza MD [address] [place] [address] PCP - General 06/16/09
[2024-12-04 13:59] LABS: Alanine Aminotransferase 23 U/L (6-35); Albumin Level 4.1 g/dL (3.5-5.1); Alkaline Phosphatase 74 U/L (38-126); Anion Gap 8 mmol/L (4-12); Aspartate Amino Transferase 41 U/L (14-36); Bilirubin,Total 0.7 mg/dL (0.2-1.3); Blood Urea Nitrogen 15 mg/dL (7-17); Calcium 9.3 mg/dL (8.4-10.2); Carbon Dioxide 29 mmol/L (22-30); Chloride 103 mmol/L (98-107); Estimated Glomerular Filt Rate > 60; Glucose 89 mg/dL (65-110); Potassium 4.1 mmol/L (3.4-5.0); Sodium 140 mmol/L (137-145)
[2024-12-04 15:33] LABS: Hemoglobin A1C 5.6 % (<5.7)
== END 2024-12-04 10:26 | disposition home or self-care (01) ==
LOC: ANHGOSHLAB 10:25
PROVIDERS: PCP Family Medicine; Visit Provider Family Medicine
DX: E78.5 Hyperlipidemia, unspecified (principal); E11.9 Type 2 diabetes mellitus without complications
CPT/HCPCS: 36415; 80053; 83036

== ENCOUNTER 2024-12-07 13:03 | Outpatient (CLI) | payer MEDICARE, SELFPAY ==
--- OUTSIDE RECORDS SUMMARY | 2024-12-08 13:45 | XMS_ITS | Clinical Summary ---
Author Organization [facility] [employer] Address [address] [place] [address] Phone Care Team Providers Care Policy Change Clerks Supervisor Name Role Phone Harvey Meza MD Primary Care Provider [phone] Allergies Active Allergy Reactions Criticality Noted Date Comments Naproxen Anaphylaxis High 06/16/2009 Penicillins Unknown 06/16/2009 Medications metFORMIN (GLUCOPHAGE) 500 mg tablet Take 500 mg by mouth daily. Two pills at night . Active Active Problems Patient Care Coordination No te Formatting of this note migh t be different from the original. 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 Stereotactic biopsy is requested for tissue diagnosis. [...] right breast on outside imaging performed at [facility]. Stereotactic biopsy is requested for tissue diagnosis. [...] Relevant to Health Maintenance Insurance Care Teams Policy Change Clerks Supervisor Relationship Specialty Start Date End Date Harvey Meza MD [address] [place] [address] PCP - General 06/16/09
== END 2024-12-07 13:04 | disposition home or self-care (01) ==
PROVIDERS: PCP Family Medicine; Visit Provider Family Medicine
DX: H93.13 Tinnitus, bilateral (principal); E11.9 Type 2 diabetes mellitus without complications; E78.5 Hyperlipidemia, unspecified; F32.A Depression, unspecified; K21.9 Gastro-esophageal reflux disease without esophagitis
CPT/HCPCS: 92557; 92567

== ENCOUNTER 2024-12-24 11:21 | Outpatient (CLI) | payer MEDICARE, SELFPAY ==
--- NOTE | ~2024-12-24 | MM_ITS ---
EXAMINATION: MM screening cruz BI w warren HISTORY: Screening TECHNIQUE: Craniocaudal and mediolateral oblique 3-D tomosynthesis images were obtained and synthetic 2-D images were generated. CAD analysis was submitted and interpreted. COMPARISON: Comparison to multiple prior studies sequentially, with oldest reviewed study dated 06/08. BREAST PARENCHYMAL COMPOSITION: Not dense: There are scattered areas of fibroglandular density. FINDINGS: There is no evidence of suspicious mass, calcification, or architectural distortion to sugg est malignancy in either breast. There has been no suspicious interval change. IMPRESSION: 1. No mammographic evidence of malignancy. 2. Recommend routine screening mammography in one year. BI-RADS Category 1: Negative Reviewed, dictated and finalized at location B.
== END 2024-12-24 11:22 | disposition home or self-care (01) ==
LOC: MICIMG 11:22
PROVIDERS: PCP Family Medicine; Visit Provider Family Medicine
DX: Z12.31 Encounter for screening mammogram for malignant neoplasm of breast (principal)
CPT/HCPCS: 77063; 77067

== ENCOUNTER 2025-05-15 14:50 | Outpatient (CLI) | payer MEDICARE, SELFPAY ==
--- NOTE | ~2025-05-15 | DEXA_ITS ---
Bone Density Report Name: SHELBI QUIROGA Age: 69 Sex: Female Ethnicity: White Date of : 1955 Indication: postmenopausal; screening for osteoporosis; Referring Provider: KYLIE HOGAN Study: Bone densitometry was performed. Exam Date: May 15, 2025 Accession number: [id number] Bone Density: Region BMD T-score Z-score Classification AP Spine(L1-L4) 1.166 1.1 3.3 Normal Femoral Neck (Left) 0.755 -0.8 1.0 Normal Total Hip (Left) 1.097 1.3 2.9 Normal Femoral Neck (Right) 0.752 -0.9 1.0 Normal Total Hip (Right) 1.073 1.1 2.7 Normal Total Hip Mean 1.085 1.2 2.8 Normal World Health Organization criteria for BMD impression classify patients as: Normal (T-score at or above -1.0), Osteopenia (T-score between -1.0 and -2.5), or Osteoporosis (T-score at or below -2.5). 10-year Fracture Risk: FRAX not reported because: All T-scores for Spine Total, Hip Total, Femoral Neck at or above -1.0 Previous Exams: Region Exam Age BMD T-score BMD Change BMD Change Date g/cm2 vs Baseline vs Previous AP Spine (L1-L4) 05/15/2025 69 1.166 1.1 0.062 (5.6%)# 0.062 (5.6%)# 11/23/2021 66 1.105 0.5 Total Hip(Left) 05/15/2025 69 1.097 1.3 0.065 (6.3%)# 0.065 (6.3%)# 11/23/2021 66 1.032 0.7 Total Hip(Right) 05/15/2025 69 1.073 1.1 0.007 (0.6%)# 0.007 (0.6%)# 11/23/2021 66 1.066 1.0 *Denotes significance at 95% confidence level, LSC for AP Spine = 0.022 g/cm2, LSC for Total Hip = 0.027 g/cm2 # Denotes dissimilar scan types or analysis methods Clinical Information Provided by Patient: Patient maximum height was 63 Menopause Age: 40 No regular weight bearing exercise Does not regularly consume dairy products Drinks caffeinated beverages Onset of menses at age 10 Number of children 2 Impression: The patient has normal bone mass. No significant bone loss was observed. Discussion: BONE DENSITY IS ABOVE THE MINIMUM DESIRABLE LEVEL AT ALL SKELETAL SITES TESTED. This patient?s bone mineral density is above the minimum desirable level (T-score -1.0 or better) at all sites measured. The patient should follow a healthful lifestyle (good nutrition with adequate calcium and vitamin D, and appropriate weight-bearing exercise). Follow-Up: Consider repeating this study in 5 years or sooner if there is some new clinical indication. Reported by: ADAM on 05/15/2025 3:40:00 PM. Reviewed, dictated and finalized at location A.
== END 2025-05-15 14:51 | disposition home or self-care (01) ==
LOC: ANHFOHIMG 15:00
PROVIDERS: PCP Family Medicine; Visit Provider Family Medicine
DX: Z78.0 Asymptomatic menopausal state (principal)
CPT/HCPCS: 77080

== ENCOUNTER 2025-06-26 11:22 | Outpatient (CLI) | payer MEDICARE, SELFPAY ==
[2025-06-26 13:05] LABS: Hematocrit 46.0 % (37.0-47.0); Hemoglobin 14.3 g/dL (12.0-15.0); Immature Granulocyte Percent A 0.3 % (0-0.5); Lymphocytes Absolute Auto 2.18 K/mm3 (0.9-3.2); Mean Corpuscular HGB Conc 31.1 g/dl (32-36); Mean Corpuscular Hemoglobin 28.8 pg (26-34); Mean Corpuscular Volume 92.7 fl (80-100); Nucleated Red Blood Cells Absolute Auto 0.000 K/mm3 (0.0-0.012); Nucleated Red Blood Cells Perc 0.0 % (0.0-0.2); Platelet Count Result 258 k/mm3 (150-375); Red Blood Count 4.96 M/mm3 (4.2-5.4); White Blood Count 7.2 K/mm3 (4.5-10.0)
[2025-06-26 15:47] LABS: MALB Creatinine Ratio < 4.7 mg/g (0-30)
[2025-06-26 15:56] LABS: Thyroid Stimulating Hormone Reflex 3.170 uIU/mL (0.465-4.68)
[2025-06-26 17:35] LABS: Alanine Aminotransferase 31 U/L (6-35); Albumin Level 4.2 g/dL (3.5-5.1); Alkaline Phosphatase 86 U/L (38-126); Anion Gap 5 mmol/L (4-12); Aspartate Amino Transferase 51 U/L (14-36); Bilirubin,Total 0.7 mg/dL (0.2-1.3); Blood Urea Nitrogen 17 mg/dL (7-17); Calcium 9.5 mg/dL (8.4-10.2); Carbon Dioxide 31 mmol/L (22-30); Chloride 103 mmol/L (98-107); Cholesterol 186 mg/dL (0-200); Estimated Glomerular Filt Rate > 60; Glucose 99 mg/dL (65-110); HDL Direct 56 mg/dL; Potassium 5.1 mmol/L (3.4-5.0); Sodium 139 mmol/L (137-145); Total Protein 7.5 g/dL (6.3-8.2); Triglycerides 192 mg/dL (<150)
[2025-06-26 18:33] LABS: Vitamin B12 701.0 pg/mL (239-931)
[2025-06-26 19:47] LABS: Hemoglobin A1C 6.1 % (<5.7)
== END 2025-06-26 11:23 | disposition home or self-care (01) ==
LOC: ANHGOSHLAB 11:22
PROVIDERS: PCP Family Medicine; Visit Provider Family Medicine
DX: E11.9 Type 2 diabetes mellitus without complications (principal); E78.5 Hyperlipidemia, unspecified; E55.9 Vitamin D deficiency, unspecified; E53.8 Deficiency of other specified B group vitamins; I10 Essential (primary) hypertension; Z00.00 Encounter for general adult medical examination without abnormal findings
CPT/HCPCS: 36415; 80053; 80061; 82043; 82306; 82607; 83036; 84443; 85025